=== PATIENT | female | born 1985 | race Caucasian/White ===

== ENCOUNTER 2020-03-12 01:30 | Day surgery (SDC) | payer BC, SELFPAY ==
[2020-03-11 12:50] VITALS: BMI 33.8
--- NOTE | 2020-03-11 13:01 | PM.IMHP ---
H&P: HPI History of Present Illness Chief complaint: Ellen LLAMAS Narrative: Nicky Gómez is a 34 year old female The was patient who is admitted for suction dilatation curettage. She had a previous 18 week demise and 2 previous C-sections. She is in the 1st trimester and passed the fetus however placental tissue remains. Risks and benefits reviewed Review of Systems Review of Systems: All systems reviewed & are unremarkable except as noted in HPI and below PMFSH Family History Family History Father Hypertension Mother Asthma Family history of eczema Sibling Family history of cardiac disorder Other Family history of allergic disorder Family history of cardiovascular disease Family history of malignant neoplasm Family history of tuberculosis Social History Social History Smoking status: Former smoker Smoking end date: 10/31/15 Alcohol intake: current Meds Home Medications and Allergies Home Medications Medication Instructions Recorded Confirmed Type PNV cmb#95-ferrous fumarate-FA 1 tablet PO DAILY 03/11/20 03/11/20 History [] cholecalciferol (vitamin D3) 1,250 mcg PO WEEKLY 03/11/20 03/11/20 History Allergies Allergy/AdvReac Type Severity Reaction Status Date / Time avocado Allergy Mild NAUSEA AND Verified 03/11/20 12:53 RASH latex Allergy Unknown Itching Verified 03/11/20 12:53 MELONS Allergy Intermediate NAUSEA AND Uncoded 03/11/20 12:53 VOMITING BANANAS Allergy Mild RASH Uncoded 03/11/20 12:53 GRAPES Allergy Mild RASH Uncoded 03/11/20 12:53 Kiwi Allergy Mild NAUESA,RASH Uncoded 03/11/20 12:53 PUMPKIN Allergy Mild NAUSEA AND Uncoded 03/11/20 12:53 RASH Exam Const: General: no acute distress Eyes: General: appearance normal, both eyes and all related structures Neck: Neck: supple and no JVD Thyroid: thyroid normal Resp: Effort & Inspection: normal respiratory effort Auscultation: clear to auscultation bilaterally Cardio: Rate: regular rate Rhythm: regular rhythm GI: Inspection: non-distended GI Palp: Yes Soft to palpation, No Tenderness to palpation present (GI) and No Guarding due to palpation present (GI) Auscultation: normal bowel sounds : General: Yes bladder normal to palpation External Female Exam: normal external appearance Speculum Exam - Vagina: normal vaginal discharge and No vaginal bleeding Speculum Exam - Cervix: nontender Bimanual exam- vagina & uterus: bladder normal to palpation and No Cervical tenderness present OB/external & speculum: No vaginal bleeding Skin: General skin exam: no rashes or lesions noted Extrem: General: normal to inspection and no edema Psych: Mental Status: mental status grossly normal Affect: normal affect Assessment and Plan Additional Plan impression: Incomplete AB Plan: Suction dilatation curettage
--- NOTE | 2020-03-12 06:36 | WPDHPUPDATE1 ---
History and Physical Update Update Date/Time: 03/12/20 06:36 History and Physical has been reviewed, including an updated exam of the patient. There are NO changes in the patient's condition. Risks, benefits, and alternatives have been discussed and questions answered. Patient agrees to proceed with procedure.
[2020-03-12 10:32] VITALS: BP 113/76; PULSE 81; RESP 18; TEMP 36.7; O2SAT 100
[2020-03-12] MEDS: LACTATED RINGERS 1,000 ML 30 ML IV CONT ×2 (10:40→11:21)
[2020-03-12 10:48] LABS: Hematocrit 36.4 % (37.0-47.0); Hemoglobin 12.5 g/dL (12.0-15.0)
--- NOTE | 2020-03-12 11:19 | PM.PROC ---
Procedure Note - Detailed Date of procedure: 03/12/20 Pre-op diagnosis: Missed AB Surgeon: Randall Chirinos MD Postop diagnosis: Incomplete AB Procedure: Suction dilatation curettage Anesthesia: Monitored anesthesia care/paracervical block Findings: Tissue consistent with products of conception Complications: None EBL: 25cc Description of procedure: The patient was prepped and draped in the normal sterile fashion placed in the dorsal lithotomy position. Under excellent IV sedation weighted speculum was placed in the posterior fornix vagina. Anterior lip of the cervix was grasped with a single-tooth tenaculum. 2.5cc 1% xylocaine anesthesia placed at 12/04/0702/05/2010 of the cervix. Uterus sounded to 11cm. Serial dilatation with fragmented dilators performed followed by passage of the 10. Curved suction curette. Several passes were made until a good grating sound was heard. When no further tissue could be removed the instruments were removed. Blood loss was estimated at25cc. All sponge, needle, instrument counts were correct. The patient went to recovery in satisfactory condition. She did require RhoGAM postoperatively
[2020-03-12 11:21] VITALS: BP 119/73; PULSE 83; RESP 12
[2020-03-12 11:51] VITALS: BP 118/76; PULSE 88; RESP 16
[2020-03-12 12:21] VITALS: BP 116/68; PULSE 80; RESP 14
[2020-03-12] MEDS: RHO(D) IMMUNE GLOBULIN 300 MCG SYRINGE IM (13:02)
== END 2020-03-12 13:00 | disposition home or self-care (01) ==
PROVIDERS: Visit Provider Obstetrics & Gynecology
PROC: (CPT 59820; principal; 2020-03-12 12:00)
DX: O02.1 Missed abortion (principal); Z87.891 Personal history of nicotine dependence
CPT/HCPCS: 59820; 36415; 85014; 85018; 85461; 88305; 90384; A9270; J2250; J2405; J2704; J2790; J7120

== ENCOUNTER 2020-11-20 12:10 | Outpatient (NON) | payer BC, SELFPAY ==
[2020-11-20 21:44] LABS: SARS-CoV-2 RNA PCR Negative
== END 2020-11-20 12:11 ==
LOC: ANHCOVIDDT 12:11
PROVIDERS: Visit Provider Obstetrics & Gynecology
DX: O98.519 Other viral diseases complicating pregnancy, unspecified trimester (principal); R68.89 Other general symptoms and signs; Z20.822 Contact with and (suspected) exposure to COVID-19; Z3A.00 Weeks of gestation of pregnancy not specified
CPT/HCPCS: C9803; U0003; U0005

== ENCOUNTER 2021-01-13 08:48 | Outpatient (RCR) | payer BC, SELFPAY ==
[2021-01-15] MEDS: RHO(D) IMMUNE GLOBULIN 300 MCG/2 ML SYRINGE IM (22:16)
== END 2021-03-23 23:59 | disposition home or self-care (01) ==
LOC: ANHLAB 08:48
PROVIDERS: Visit Provider Obstetrics & Gynecology
DX: Z34.80 Encounter for supervision of other normal pregnancy, unspecified trimester (principal); Z3A.00 Weeks of gestation of pregnancy not specified
CPT/HCPCS: 36415; 85461; 90384; 96372; J2790

== ENCOUNTER 2021-02-10 16:36 | Outpatient (RCR) | payer BC, SELFPAY ==
[2021-02-10 16:40] VITALS: BMI 35.7
[2021-02-10 16:41] VITALS: BMI 35.7
--- NOTE | 2021-03-04 09:34 | P.HP_ITS ---
H&P: HPI History of Present Illness Date/Time: 03/04/21 09:34 35-year-old with 2 previous C-sections admitted for repeat section. Her last menstrual period was 06/02/2020, EDC is 03/11/2021, and this was confirmed by 9 week ultrasound. The baby is large baby and the has been uncomplicated short of gestational diabetes with that has been diet controlled. Chief Complaint: repeat section at term Review of Systems Review of Systems: All systems reviewed & are unremarkable except as noted in HPI and below PMFSH Family History Family History Father Hypertension Mother Asthma Family history of eczema Sibling Family history of cardiac disorder Other Family history of allergic disorder Family history of cardiovascular disease Family history of malignant neoplasm Family history of tuberculosis Social History Social History Smoking status: Former smoker Smoking end date: 10/31/15 Alcohol intake: current Spiritual care concerns: No Meds Home Medications and Allergies Home Medications Medication Instructions Recorded Confirmed Type PNV cmb#95-ferrous fumarate-FA 1 tablet PO DAILY 03/11/20 03/12/20 History [] cholecalciferol (vitamin D3) 1,250 mcg PO WEEKLY 03/11/20 03/12/20 History hydrocodone-acetaminophen [[place]] 1 tablet PO Q4H PRN #20 tablet 03/12/20 Rx Allergies Allergy/AdvReac Type Severity Reaction Status Date / Time avocado Allergy Mild NAUSEA AND Verified 03/12/20 10:33 RASH latex Allergy Unknown Itching Verified 03/12/20 10:33 MELONS Allergy Intermediate NAUSEA AND Uncoded 03/12/20 10:33 VOMITING BANANAS Allergy Mild RASH Uncoded 03/12/20 10:33 GRAPES Allergy Mild RASH Uncoded 03/12/20 10:33 Kiwi Allergy Mild NAUESA,RASH Uncoded 03/12/20 10:33 PUMPKIN Allergy Mild NAUSEA AND Uncoded 03/12/20 10:33 RASH Exam Const: General: no acute distress Eyes: General: appearance normal, both eyes and all related structures Neck: Neck: supple and no JVD Thyroid: thyroid normal Resp: Effort & Inspection: normal respiratory effort Auscultation: clear to auscultation bilaterally Cardio: Rate: regular rate Rhythm: regular rhythm GI: Inspection: non-distended GI Palp: Yes Soft to palpation, No Tenderness to palpation present (GI) and No Guarding due to palpation present (GI) Auscultation: normal bowel sounds : External Female Exam: normal external appearance Speculum Exam - Vagina: normal appearance of the vagina Speculum Exam - Cervix: normal appearance of the cervix Bimanual exam- vagina & uterus: other ( Gravid soft uterus) Bimanual Exam- Adnexa, other: normal adnexae Skin: General skin exam: no rashes or lesions noted Extrem: General: normal to inspection and no edema Psych: Mental Status: mental status grossly normal Affect: normal affect Assessment and Plan Additional Plan impression term with previous section x2 Plan: Repeat low-transverse section
== END 2021-04-28 11:10 | disposition home or self-care (01) ==
LOC: ANHDMC 16:36
PROVIDERS: Referring Provider Obstetrics & Gynecology; Visit Provider Obstetrics & Gynecology
DX: O24.319 Unspecified pre-existing diabetes mellitus in pregnancy, unspecified trimester (principal); Z71.3 Dietary counseling and surveillance
CPT/HCPCS: 97802

== ENCOUNTER 2021-03-05 17:48 | Outpatient (CLI) | payer BC, SELFPAY ==
[2021-03-05 18:01] LABS: Hematocrit 33.4 % (37.0-47.0); Hemoglobin 11.7 g/dL (12.0-15.0); Mean Corpuscular Hemoglobin 31.6 pg (26-34); Mean Corpuscular Volume 90.3 fl (80-100); Mean Platelet Volume 9.4 fl (7.4-10.4); Platelet Count Result 204 k/mm3 (150-375); Red Cell Distribution Width 13.2 % (11.5-14.5); White Blood Count 11.2 K/mm3 (4.5-10.0)
[2021-03-06 07:01] LABS: Rapid Plasma Reagin Non-Reactive (NonReactive)
== END 2021-03-05 17:49 | disposition home or self-care (01) ==
LOC: ANHLAB 17:50
PROVIDERS: Visit Provider Obstetrics & Gynecology
DX: Z01.818 Encounter for other preprocedural examination (principal)
CPT/HCPCS: 36415; 85027; 86592; 86850; 86900; 86901

== ENCOUNTER 2021-03-06 07:05 | Inpatient (IN) | payer BC, SELFPAY ==
[2021-03-06] VITALS (56 sets, daily range): BP systolic 105–127; BP diastolic 70–86; PULSE 74–103; RESP 11–18; TEMP 36.4–37; O2SAT 99–100; BMI 36.8
--- NOTE | 2021-03-06 06:03 | WPDHPUPDATE1 ---
History and Physical Update Update Date/Time: 03/06/21 06:03 History and Physical has been reviewed, including an updated exam of the patient. There are NO changes in the patient's condition. Risks, benefits, and alternatives have been discussed and questions answered. Patient agrees to proceed with procedure.
[2021-03-06 08:01] LABS: Glucose Point of Care 83 (65-105)
[2021-03-06] MEDS: LACTATED RINGERS 1,000 ML 125 ML IV CONT ×2 (08:04→08:45)
--- NOTE | 2021-03-06 08:18 | LDADM ---
This patient, Nicky Gómez, was admitted to Labor/Delivery/Recovery 119 on 03/06/21 at 07:05. Plans for labor, pain management and were discussed with patient. Patient/family oriented to hospital policies and general routines including ID bracelet, bed and alarms, visiting hours, pain management, procedures, bathroom and other care routines, personal items, smoking policy, room service/diet and guest tray routines, infant security routines, and visiting hours. Patient/Family are encouraged to report perceived risks to care and to ask questions if they do not understand what they are told or what they should do. See OBIX for further documentation.
--- NOTE | 2021-03-06 08:38 | WPDANESEPPF ---
Anes - Initial Pre Proc Eval Procedure: Operation Date: 03/06/21 09:00 Proposed Procedures p Repeat Section - Randall Chirinos MD Date/Time: 03/06/21 08:38 Surgeon: Randall Chirinos MD Pre Op Diagnosis: previous Patient Data Age: 35 Gender: F Height: 5 ft Weight: 85.5 kg Last Vital Signs Pulse 99 03/06/21 08:16 BP 114/79 03/06/21 08:16 Allergies Allergy/AdvReac Type Severity Reaction Status Date / Time avocado Allergy Mild NAUSEA AND Verified 03/12/20 10:33 RASH latex Allergy Unknown Itching Verified 03/12/20 10:33 MELONS Allergy Intermediate NAUSEA AND Uncoded 03/12/20 10:33 VOMITING BANANAS Allergy Mild RASH Uncoded 03/12/20 10:33 GRAPES Allergy Mild RASH Uncoded 03/12/20 10:33 Kiwi Allergy Mild NAUESA,RASH Uncoded 03/12/20 10:33 PUMPKIN Allergy Mild NAUSEA AND Uncoded 03/12/20 10:33 RASH Home Medications Medication Instructions Recorded Confirmed Type PNV cmb#95-ferrous fumarate-FA 1 tablet PO DAILY 03/11/20 03/06/21 History [] hydrocodone-acetaminophen 1 tablet PO Q4H PRN #30 tablet 03/06/21 Rx Laboratory Tests 03/06/21 07:47 POC Capillary Glucose 83 mg/dl mg/dl (65-105) Patient hx anesthesia problems: none Family hx anesthesia problems: none PMFSH Past Medical History Medical History (Updated 03/06/21 @ 08:38 by Randall Morales MD) Gestational diabetes Surgical History Surgical History (Updated 03/06/21 @ 08:38 by Randall Morales MD) History of section Family History Family History Father Hypertension Mother Asthma Family history of eczema Sibling Family history of cardiac disorder Other Family history of allergic disorder Family history of cardiovascular disease Family history of malignant neoplasm Family history of tuberculosis Social History Social History Smoking status: Never smoker Smoking end date: 10/31/15 Alcohol intake: current Substance use: never Spiritual care concerns: No Anes - Eval Final PreProcedure Day of Procedure 03/06/21 08:38 Patient weight: obese Heart: regular rate and rhythm Lungs: clear to auscultation Airway: Mallampati scale class II Neurological: alert and oriented Last oral intake: >/= 8 hours ASA classification: III Emergent: no Anesthetic plan: proceed Anesthesia type and monitoring: regional spinal and standard monitoring Informed Consent: The patient's anesthetic plan and its attendant risks and benefits were discussed with the patient/family/POA. Questions were solicited and answers provided to the satisfaction of the patient/family/POA.
--- NOTE | 2021-03-06 09:36 | PM.PROC ---
Procedure Note - Detailed Date of procedure: 03/06/21 Pre-op diagnosis: previous Surgeon: Randall Chirinos MD Postop diagnosis: Term /previous section/gestational diabetes diet controlled Procedure: Repeat low-transverse section Anesthesia: Spinal EBL: 325cc Findings: Female 7 lb 9 oz female Apgars of 8 and 9 at 1 and 5 minutes respectively Complications: None Description of procedure: The patient was prepped and draped in the normal sterile fashion placed in the dorsal lithotomy position. Under excellent spinal anesthetic the abdomen was entered in Pfannenstiel fashion progressive layers to the fascia. Fascia was incised in upward outward fashion bilaterally in the underlying muscles sharply dissected. Parietal peritoneum elevated Olya clamps and entered superiorly and inferiorly. There is a fair amount of scar tissue anteriorly where the bladder was in a fair amount of dissection was undertaken to relieve that. A low-transverse incision made in the head delivered in the DEA position. Anterior posterior shoulder delivered spontaneously. Cord clamped x2 and cut and infant passed off the table with an excellent cry. Placenta delivered intact manually after trying blood after assuring no membranes were to remain in the uterus the uterus was closed with continuous running locking 0 Vicryl from lateral edge to lateral edge. This was followed by a 2nd imbricating running locking 0 Vicryl from lateral edge to lateral edge. Hemostasis was assured. Pedicles appeared dry and the uterus returned to the abdomen irrigation undertaken until clear and the incision on the uterus inspected 1 last time noted be clear. Interceed was placed over that raw areas there was a fair amount of scar tissue to add prior. Laps removed and accounted for and the fascia closed with continuous running 0 Vicryl from lateral edge to midline bilaterally. Irrigation subcutaneous layer and the skin closed with 4 Monocryl glue. Q BL was 325cc. All sponge, needle, instrument counts were correct. There were no immediate complications
[2021-03-06] MEDS: MORPHINE SULFATE (*CRX) 2 MG/ML INJ IV PUSH ×2 (09:57→10:42)
[2021-03-06] MEDS: MORPHINE SULFATE PCA (*CRX) 30 MG/30 ML SYR IV CONT ×2 (11:01→22:05)
--- NOTE | 2021-03-06 12:06 | OBPPTRN ---
Patient transferred to post room #291 via stretcher. Support person present. Oriented to unit, room, information board, rooming in, admission packet and security measures. Patient verbalizes understanding.
[2021-03-06] MEDS: KETOROLAC 30 MG/ML VIAL (*BKC) IV PUSH ×2 (12:12→18:49)
[2021-03-06] MEDS: SIMETHICONE 80 MG TAB.CHEW PO (14:51)
[2021-03-06] MEDS: DEXTROSE 5%/0.45% SOD CHL 1,000 ML 125 ML IV CONT ×2 (14:51→22:14)
[2021-03-07 01:12] VITALS: BP 114/74; PULSE 96; RESP 18; TEMP 36.2; O2SAT 99
[2021-03-07] MEDS: KETOROLAC 30 MG/ML VIAL (*BKC) IV PUSH (05:07)
[2021-03-07] MEDS: MORPHINE SULFATE PCA (*CRX) 30 MG/30 ML SYR IV CONT (05:36)
[2021-03-07 05:42] VITALS: BP 112/72; PULSE 100; RESP 16; TEMP 36.8; O2SAT 100
[2021-03-07 05:46] LABS: Basophils Percent Auto 0.3 % (0.2-1.2); Eosinophils Absolute Auto 0.1 K/mm3 (0-0.3); Eosinophils Percent Auto 1.1 % (0-4.4); Hemoglobin 9.5 g/dL (12.0-15.0); Immature Granulocyte Absolute 0.07 K/mm3 (0.00-0.031); Immature Granulocyte Percent A 0.6 % (0-0.5); Lymphocytes Absolute Auto 1.08 K/mm3 (0.9-3.2); Lymphocytes Percent Auto 9.4 % (18.3-44.2); Mean Corpuscular HGB Conc 33.9 g/dl (32-36); Mean Corpuscular Hemoglobin 30.9 pg (26-34); Mean Corpuscular Volume 91.2 fl (80-100); Monocytes Absolute Auto 0.7 K/mm3 (0.1-0.6); Monocytes Percent Auto 6.3 % (2.6-8.5); Neutrophils Absolute Auto 9.4 K/mm3 (1.3-6.7); Neutrophils Percent Auto 82.3 % (45.5-73.1); Platelet Count Result 188 k/mm3 (150-375); Red Blood Count 3.07 M/mm3 (4.2-5.4); Red Cell Distribution Width 13.2 % (11.5-14.5); White Blood Count 11.5 K/mm3 (4.5-10.0)
[2021-03-07] MEDS: HYDROcodone/acetaminophen (*CRX) 10-325 MG TABLET 1 TAB PO ×2 (06:37→20:40)
[2021-03-07] MEDS: SIMETHICONE 80 MG TAB.CHEW PO ×2 (07:08→16:42)
[2021-03-07] MEDS: DOCUSATE SODIUM 100 MG CAPSULE PO ×2 (07:08→16:42)
[2021-03-07] MEDS: POLYSACCHARIDE IRON COMPLEX 150 MG CAPSULE PO ×2 (07:08→16:43)
--- NOTE | 2021-03-07 07:15 | PM.OBPNVD ---
OB - PN: Subj Subjective Date/time seen: 03/07/21 07:15 Patient comments: no complaints and pain well controlled baby status: doing well and nursing well OB - PN: Obj Data Labs CBC & Chem 7: 03/07/21 05:12 Labs: Laboratory Results - last 24 hr 03/06/21 03/07/21 03/07/21 07:47 05:12 05:12 WBC 11.5 H RBC 3.07 L Hgb 9.5 L Hct 28.0 L MCV 91.2 MCH 30.9 MCHC 33.9 RDW 13.2 Plt Count 188 MPV 10.0 Immature Gran % (Auto) 0.6 H Neut % (Auto) 82.3 H Lymph % (Auto) 9.4 L [place] % (Auto) 6.3 Eos % (Auto) 1.1 Baso % (Auto) 0.3 Lymph # (Auto) 1.08 [place] # (Auto) 0.7 H Eos # (Auto) 0.1 Baso # (Auto) 0.0 Abs Immat Gran (auto) 0.07 H Absolute Neuts (auto) 9.4 H Absolute Nucleated RBC 0.0 Nucleated RBC % 0.0 POC Capillary Glucose 83 Blood Type O Negative Antibody Screen TNP Screen Negative Baby's Blood Type O pos Baby's KIM Negative Doses of RhIg Required 1 OB - PN A/P Plan day: 1 Plan: routine care Time Spent With Patient Time: Total time spent is greater than 50% in coordination of care (as documented) at patient's floor/unit and/or counseling patient: Time with patient: less than 15 minutes Review of Systems Review of Systems: All systems reviewed & are unremarkable except as noted in HPI and below Exam Const: General: no acute distress Eyes: General: appearance normal, both eyes and all related structures Neck: Neck: supple and no JVD Thyroid: thyroid normal Resp: Effort & Inspection: normal respiratory effort Auscultation: clear to auscultation bilaterally Cardio: Rate: regular rate Rhythm: regular rhythm GI: Inspection: normal to inspection and incision (cdi) Auscultation: normoactive bowel sounds : General: Yes bladder normal to palpation External Female Exam: normal external appearance Speculum Exam - Vagina: normal vaginal discharge and No vaginal bleeding Speculum Exam - Cervix: nontender Bimanual exam- vagina & uterus: bladder normal to palpation and No Cervical tenderness present OB/external & speculum: No vaginal bleeding Skin: General skin exam: no rashes or lesions noted Extrem: General: normal to inspection and no edema Psych: Mental Status: mental status grossly normal Affect: normal affect
[2021-03-07 08:00] VITALS: BP 108/71; BP 112/72; PULSE 100; PULSE 88; RESP 16; RESP 18; TEMP 36.4; TEMP 36.8; O2SAT 100
--- NOTE | 2021-03-07 10:44 | WPDANLDPN2 ---
Anes-Prog Note L&D Date/Time: 03/07/21 10:44 Comfortable throughout: section Neuraxial method: spinal Epidural/Spinal procedure site: clean & non-tender Neuro status: Neuro function grossly intact. Cardiovascular status: normal Respiratory status: normal Airway patency: baseline Mental status: baseline Post-Op hydration status: normal Vital Signs: Last Vital Signs Temp 36.8 C 03/07/21 05:42 Pulse 100 03/07/21 05:42 Resp 16 03/07/21 05:42 BP 112/72 03/07/21 05:42 Pulse Ox 100 03/07/21 05:42 Pain score (VAS): 0 I/O: Intake & Output 03/06/21 03/07/21 03/07/21 23:59 07:59 15:59 Intake Total 1230 15 Output Total 2425 3000 Balance -1196 -6246 Post-procedural complaints: none Patient feedback: Patient satisfied with anesthetic care.
--- NOTE | 2021-03-07 10:44 | WPDANLDNPN2 ---
Anes-Prog Note L&D-Neuraxial Date/Time: 03/07/21 10:44 Neuraxial medications: intrathecal PF morphine Opiod-related complaints: none Patient feedback: Patient satisfied with post-operative pain management.
[2021-03-07] MEDS: HYDROcodone/acetaminophen (*CRX) 5-325 MG TABLET 1 TAB PO ×2 (12:58→16:43)
[2021-03-07] MEDS: IBUPROFEN 600 MG TABLET PO ×2 (12:58→20:40)
[2021-03-07] MEDS: RHO(D) IMMUNE GLOBULIN 300 MCG/2 ML SYRINGE IM (12:59)
--- NOTE | 2021-03-07 16:30 | PC.NURSE ---
Addendum entered by Anisa Long RN 03/07/21 18:07: wrong pt. Original Note: Breast pump provided due to pt. complaining of very tender nipples. Instructions given on breast pump care and usage, pumping schedule, nipple care, and collection and storage of breast milk. Encouraged uqhr-by-dhly, breast massage and manual expression to stimulate supply. Assessed patient for correct flange size, placement and draw. Patient verbalizes and demonstrates understanding of instructions.
[2021-03-07] MEDS: ACETAMINOPHEN 325 MG TABLET 650 MG PO (16:44)
[2021-03-07 19:00] VITALS: BP 114/76; PULSE 90; RESP 16; TEMP 36.4; O2SAT 100
--- NOTE | 2021-03-08 06:56 | PM.DS ---
DS: Admitting Diagnosis Admitting Diagnosis Admitting Diagnosis: term intrauterine Previous section DS: Summary Hospital Course Hospital Course: the patient was admitted for repeat section at term. She had suffered from diet-controlled gestational diabetes. Her hospital course was unremarkable. She remained afebrile. She was up, voiding left difficulty, ambulating, breast-feeding, and generally without complaints Time Spent with Patient Time attestation: Total time spent providing and/or coordinating discharge services: Exam Const: General: no acute distress Eyes: General: appearance normal, both eyes and all related structures Neck: Neck: supple and no JVD Thyroid: thyroid normal Resp: Effort & Inspection: normal respiratory effort Auscultation: clear to auscultation bilaterally Cardio: Rate: regular rate Rhythm: regular rhythm GI: Inspection: non-distended GI Palp: Yes Soft to palpation, No Tenderness to palpation present (GI) and No Guarding due to palpation present (GI) Auscultation: normal bowel sounds : General: Yes bladder normal to palpation External Female Exam: normal external appearance Speculum Exam - Vagina: normal vaginal discharge and No vaginal bleeding Speculum Exam - Cervix: nontender Bimanual exam- vagina & uterus: bladder normal to palpation and No Cervical tenderness present OB/external & speculum: No vaginal bleeding Skin: General skin exam: no rashes or lesions noted Extrem: General: normal to inspection and no edema Psych: Mental Status: mental status grossly normal Affect: normal affect DS: Data Data Completed and Pending Labs on day of discharge: Labs from last 24 hours 03/07/21 05:12 Blood Type O Negative Antibody Screen TNP Screen Negative Baby's Blood Type O pos Baby's KIM Negative Doses of RhIg Required 1 Discharge Plan Discharge Attending physician on discharge: Randall Chirinos Discharging Clinician: Randall Chirinos Patient Disposition: Home, Self-Care Activity: may shower, no straining, may drive after 2 weeks and pelvic rest Diet: heart healthy Wound Care Instructions: follow printed instructions Patient Instructions: Antibiotic Form Stand Alone Forms: General Discharge Information Follow-up/Referrals: Randall Chirinos MD [Physician] - Discharge Medications: New hydrocodone-acetaminophen 5-325 mg tablet 1 tablet PO Q4H PRN (Reason: pain) Qty: 30 RF: 0 Continued PNV cmb#95-ferrous fumarate-FA [] 28 mg iron- 800 mcg Tablet 1 tablet PO DAILY RF: 0 Date of admission: 03/06/21 07:05 Primary Care Provider: PHYSICIAN,SALES STRATEGY MANAGER Admitting Provider: Randall Chirinos Attending physician on admission: Randall Chirinos Condition: Stable
--- NOTE | 2021-03-08 06:58 | PM.OBPNVD ---
OB - PN: Subj Subjective Date/time seen: 03/08/21 06:58 Patient comments: no complaints and pain well controlled baby status: doing well and nursing well OB - PN: Obj Data Labs CBC & Chem 7: 03/07/21 05:12 Labs: Laboratory Results - last 24 hr 03/07/21 05:12 Blood Type O Negative Antibody Screen TNP Screen Negative Baby's Blood Type O pos Baby's KIM Negative Doses of RhIg Required 1 OB - PN A/P Plan day: 2 Plan: routine care, discharge home and follow up 6 weeks (4 weeks) Time Spent With Patient Time: Total time spent is greater than 50% in coordination of care (as documented) at patient's floor/unit and/or counseling patient: Time with patient: less than 15 minutes Review of Systems Review of Systems: All systems reviewed & are unremarkable except as noted in HPI and below Exam Const: General: no acute distress Eyes: General: appearance normal, both eyes and all related structures Neck: Neck: supple and no JVD Thyroid: thyroid normal Resp: Effort & Inspection: normal respiratory effort Auscultation: clear to auscultation bilaterally Cardio: Rate: regular rate Rhythm: regular rhythm GI: Inspection: non-distended GI Palp: Yes Soft to palpation, No Tenderness to palpation present (GI) and No Guarding due to palpation present (GI) Auscultation: normal bowel sounds : General: Yes bladder normal to palpation External Female Exam: normal external appearance Speculum Exam - Vagina: normal vaginal discharge and No vaginal bleeding Speculum Exam - Cervix: nontender Bimanual exam- vagina & uterus: bladder normal to palpation and No Cervical tenderness present OB/external & speculum: No vaginal bleeding Skin: General skin exam: no rashes or lesions noted Extrem: General: normal to inspection and no edema Psych: Mental Status: mental status grossly normal Affect: normal affect
[2021-03-08] MEDS: SIMETHICONE 80 MG TAB.CHEW PO ×2 (07:56→13:42)
[2021-03-08] MEDS: IBUPROFEN 600 MG TABLET PO ×2 (07:56→13:42)
[2021-03-08] MEDS: HYDROcodone/acetaminophen (*CRX) 10-325 MG TABLET 1 TAB PO ×2 (07:56→13:41)
[2021-03-08] MEDS: DOCUSATE SODIUM 100 MG CAPSULE PO (07:56)
[2021-03-08 08:00] VITALS: BP 121/76; PULSE 77; RESP 20; TEMP 36.6
--- NOTE | 2021-03-08 12:00 | PC.NURSE ---
Patient was given the opportunity to view the discharge video Mother & Baby Care, The First Two Weeks and to ask questions. Patient declined viewing the video and has been given the mother/baby guide for home reference.
--- NOTE | 2021-03-08 12:01 | PC.NURSE ---
Self care and infant care discharge instructions given including follow up visit date and time. Mother verbalized understanding. No questions or concerns voiced. Very pleasant and cooperative. at side.
[2021-03-10 11:20] VITALS: BP 133/77; PULSE 86; RESP 20; TEMP 36.6; O2SAT 99
== END 2021-03-08 14:42 | disposition home or self-care (01) | DRG 788 ==
LOC: ANHLDR 07:09 → ANHOB2 12:11
PROVIDERS: Admitting Provider Obstetrics & Gynecology; Visit Provider Obstetrics & Gynecology
PROC: 10D00Z1 Extraction of Products of Conception, Low, Open Approach (ICD-10-PCS; CPT 59514; principal; 2021-03-06 09:00)
DX: O34.211 Maternal care for low transverse scar from previous cesarean delivery (principal); Z37.0 Single live birth; Z3A.39 39 weeks gestation of pregnancy; O99.214 Obesity complicating childbirth; E66.9 Obesity, unspecified; O24.420 Gestational diabetes mellitus in childbirth, diet controlled; O77.0 Labor and delivery complicated by meconium in amniotic fluid
CPT/HCPCS: 36415; 82948; 85025; 85461; 90384; A9270; J0131; J1885; J2270; J2590; J2790; J7120